=== PATIENT | female | born 1975 | race Caucasian/White ===

== ENCOUNTER 2017-07-08 09:27 | Emergency (ER) | payer SELFPAY ==
--- NOTE | 2017-07-08 09:32 | ED Physician Documentation ---
General Adult - HISTORIAN Historian: patient - HPI Stated Complaint: headache and sinus congestion Chief Complaint: Headache Onset: days ago (3) Timing: still present Severity: mild Further Comments: yes (She was recently incarcerated 3 days ago. She states she has a history of migraines and she can resolve the migraine with OTC meds and rest. She states this headache started two or three days ago. She denies a fever but has felt chills. she has no injury to report. She has sinus pain and pressure .) Last known Well Code/Unknown Code: Unknown - ROS CONST: sweating. denies: fever EYES/ENT: nasal drainage, nasal congestion CVS/RESP: cough GI/: denies: abdominal pain, vomiting, nausea - PAST HX Past History: other (migraine ) Other History: other Surgeries/Procedures: other Immunizations: referred to PCP Allergies/Adverse Reactions: Allergies Allergy/AdvReac Type Severity Reaction Status Date / Time 'cillins' Allergy Uncoded 07/08/17 09:46 Home Medications: Ambulatory Orders Medication Instructions Recorded Cefdinir [Omnicef] 300 mg PO BID #20 capsule 07/08/17 Ciprofloxacin HCl/Dexameth 7.5 ml OT TID #1 drops.susp 07/08/17 [Ciprodex Otic Suspension] - SOCIAL HX Smoking History: cigarettes Alcohol Use: occasionally Drug Use: none - FAMILY HX Family History: No - REVIEWED ASSESSMENTS Nursing Assessment Reviewed: Yes Vitals Reviewed: Yes General Adult Physical Exam - PHYSICAL EXAM GENERAL APPEARANCE: no distress EENT: eye inspection normal, TM erythema (right with green drainage in ear canal ) RESPIRATORY: wheezes (expiratory ) CVS: reg rate & rhythm, heart sounds normal, equal pulses, no murmur ABDOMEN: soft EXTREMITIES: non-tender, normal range of motion, no evidence of injury, no edema NEURO: oriented X3, CN's nml as tested, motor nml, sensation nml, mood/affect nml, cognition normal Discharge Clincal Impression: Otitis Qualifiers: Laterality: right Qualified Code(s): H66.91 - Otitis media, unspecified, right ear Prescriptions: Cefdinir [Omnicef] 300 mg PO BID #20 capsule Ciprofloxacin HCl/Dexameth [Ciprodex Otic Suspension] 7.5 ml OT TID #1 drops.susp Comments: OTC meds for headache Cefdinr 300 mg BID X 10 days Ciprodex 3 drops in right ear three times per day x 5 days Increase fluids Return to ER or PCP for any concerning symptoms Condition: Stable Disposition: 01 HOME, SELF-CARE Decision to Admit: NO Date of Decison to Admit: 07/08/17 Decision Time: 10:09
[2017-07-08 09:51] VITALS: BP 111/60
[2017-07-08] MEDS: IBUPROFEN 200 MG TABLET PO ONE (10:10)
== END 2017-07-08 10:15 | disposition home or self-care (01) ==
LOC: ED 09:27
DX: R51 Headache (principal)
CPT/HCPCS: 87400; 99282